=== PATIENT | female | born 1995 | race Caucasian/White ===

== ENCOUNTER 2022-11-05 08:37 | Outpatient (CLI) | payer BC, SELFPAY ==
[2022-11-05 13:31] LABS: Amphetamine Screen Urine Negative (Negative); Barbiturate Screen Urine Negative (Negative); Benzodiazepines Screen Urine Negative (Negative); Cocaine Screen Urine Negative (Negative); Methadone Screen Urine Negative (Negative); Methamphetamines Screen Urine Negative (Negative); Opiate Screen Urine Negative (Negative); Oxycodone Screen Urine Negative (Negative); Phencyclidine Screen Urine Negative (Negative); Tricyclic Antidepressant Urine Negative (Negative)
[2022-11-05 14:09] LABS: Cannabinoid Screen Urine POSITIVE (Negative)
== END 2022-11-05 08:38 | disposition home or self-care (01) ==
LOC: LKVREF 08:39
PROVIDERS: PCP Physician Assistant Medical; Visit Provider Physician Assistant Medical
DX: F90.9 Attention-deficit hyperactivity disorder, unspecified type (principal)
CPT/HCPCS: 80306

== ENCOUNTER 2023-12-04 13:11 | Emergency (ER) | payer MEDICAID, SELFPAY ==
[2023-12-04 13:18] VITALS: BP 119/80; PULSE 105; RESP 18; TEMP 36.6; O2SAT 99; BMI 23.0
--- NOTE | 2023-12-04 13:33 | ED.GENADULT ---
HPI - General Adult General Chief complaint: Vaginal Bleeding Stated complaint: Heavy vaginal bleeding week and a half Time Seen by Provider: 12/04/23 13:12 History of Present Illness HPI narrative: The patient is a 28 year white female with a history of dysfunctional uterine bleeding and fairly heavy periods, has been on Junel control, about 10 days ago she started spotting and then stop her Junel because every 3 months she is postop for 5 days. Then she is expected to have a normal cycle. At this point the patient continues to have bleeding 10 days later, she has felt a little bit fatigued walking across the room. 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 She has stop the Junel after restarting it for a couple of days after her 5 day absence given the heaviness of the bleeding. She sees are [facility] for primary care. She has not any chest pain, breathing problem, leg swelling or edema, bleeding or blood diatheses Related Data Home Medications Medication Instructions Recorded Confirmed insulin aspart U-100 100 unit/mL 1 sliding scale dose subcut 11/05/22 08/07/23 (3 mL) subcutaneous pen (Novolog USEASDIRECTD FlexPen U-100 Insulin aspart) montelukast 10 mg tablet 10 mg PO QDAY 11/05/22 08/07/23 norethindrone acetate 1 mg-ethinyl 1 tab PO QDAY 07/03/23 08/07/23 estradiol 20 mcg tablet () Previous Rx's Medication Instructions Recorded ondansetron HCl 4 mg tablet 4 mg PO Q6H PRN for 09/11/23 nausea/vomiting #20 tabs propranolol 20 mg tablet 20 mg PO BID PRN anxiety #60 tabs 10/07/23 trazodone 50 mg tablet 100 mg (2 x 50 mg) PO QDAY #180 11/05/23 tabs medroxyprogesterone 10 mg tablet 20 mg (2 x 10 mg) PO BID #20 tabs 12/04/23 (Provera) Allergies Allergy/AdvReac Type Severity Reaction Status Date / Time amoxicillin AdvReac Hives Verified 08/07/23 10:52 metoclopramide [From Reglan] AdvReac Anxiety Verified 08/07/23 10:52 prochlorperazine AdvReac Verified 08/07/23 10:52 [From Compazine] Review of Systems Status of ROS: Reports: 6 or more systems reviewed and unremarkable except as noted in History and below [facility] Medical History Hx of pneumococcal septicemia ?Z86.19 - Personal history of other infectious and parasitic diseases (ICD-10) Fracture of thoracic spine ?S22.009A - Unspecified fracture of unspecified thoracic vertebra, initial encounter for closed fracture (ICD-10) Social History Narrative: Single. She resides with her mother. 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 Nontobacco user. Denies alcohol use. Recreational marijuana use. 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 Smoking Status: Never smoker Little interest or pleasure in doing things: nearly every day Feeling down, depressed, or hopeless: nearly every day Exam Narrative: Exam Narrative: Objective: Patient is alert oriented, noncyanotic, does not appear pale Vital signs look within normal limits HEENT unremarkable pulse regular abdomen benign soft , extremities good perfusion No suprapubic pain to palpation, no palpable mass Const: Vital Signs, click to edit/add: Vital Signs - 24 hr 12/04/23 13:18 Temperature 97.9 F Pulse Rate [Pulse Oximeter] 105 H Respiratory Rate 18 Blood Pressure [Ri ght Upper Arm] 119/80 Pulse Oximetry 99 Oxygen Delivery Me thod Room Air Course Vital Signs Vital signs: Initial Vital Signs Temperature 97.9 F 12/04/23 13:18 Temperature Source Temporal Artery Scan 12/04/23 13:18 Pulse Rate 105 H 12/04/23 13:18 Pulse Rhythm Regular 12/04/23 13:18 Respiratory Rate 18 12/04/23 13:18 Blood Pressure 119/80 12/04/23 13:18 Blood Pressure Mean 93 12/04/23 13:18 Blood Pressure Position Sitting 12/04/23 13:18 Pulse Oximetry 99 12/04/23 13:18 Oxygen Delivery Method Room Air 12/04/23 13:18 Vital Signs Temperature 97.9 F 12/04/23 13:18 Pulse Rate 105 H 12/04/23 13:18 Respiratory Rate 18 12/04/23 13:18 Blood Pressure 119/80 12/04/23 13:18 Pulse Oximetry 99 12/04/23 13:18 Oxygen Delivery Method Room Air 12/04/23 13:18 Temperature 97.9 F 12/04/23 13:18 Pulse Rate 105 H 12/04/23 13:18 Respiratory Rate 18 12/04/23 13:18 Blood Pressure 119/80 12/04/23 13:18 Pulse Oximetry 99 12/04/23 13:18 Oxygen Delivery Method Room Air 12/04/23 13:18 Medications Administered Medications: Discontinued Medications Generic Name Dose Route Start Last Admin Trade Name Jacques PRN Reason Stop Dose Admin Sodium Chloride 1,000 mls @ 6,000 mls/hr 12/04/23 13:30 12/04/23 14:53 0.9 % Sodium Chloride 1000 Ml IV 12/04/23 13:39 Infused .Q10M IVON Infusion Medical Decision Making MDM Narrative Medical decision making narrative: [age] year white female with control use of estrogen progestin, with heavy vaginal bleeding for about 10 days being off the pill. The patient at this point I think would be tavares check a test give her some IV fluid, check her hemoglobin. Will discuss with OB, it usually at this point a 10 day course of progesterone would be reasonable or Provera. Disposition pending recommendations. Lab Data Labs: Lab Results 12/04/23 12/04/23 Range/Units 13:35 14:00 WBC 6.63 (4.50-11.00) K/uL RBC 3.70 L (4.00-5.20) m/uL Hgb 10.9 L (12.0-16.0) gm/dL Hct 33.0 (33.0-51.0) % MCV 89 (80-100) fL MCH 30 (26-34) pg MCHC 33 (32-36) gm/dL RDW Coeff of Kamryn 13.5 (11.5-15.5) % Plt Count 330 (140-440) K/uL Neut % (Auto) 59.1 (42.0-72.0) % Lymph % (Auto) 31.2 (20-44) % [place] % (Auto) 6.3 (0.0-11.0) % Eos % (Auto) 2.7 (0.0-7.0) % Baso % (Auto) 0.5 (0.0-3.0) % Neut # (Auto) 3.92 (1.7-7.0) K/uL Lymph # (Auto) 2.07 (0.90-2.90) K/uL [place] # (Auto) 0.40 (0.00-0.90) K/UL Eos # (Auto) 0.18 (0.00-0.50) K/uL Baso # (Auto) 0.03 (0.00-0.30) K/uL Abs Immat Gran (auto) 0.01 (0.00-0.30) K/uL Imm/Tot Granulo (auto) 0.2 % Sodium 134 L (135-149) mmol/L Potassium 3.8 (3.6-5.1) mmol/L Chloride 102 (96-114) mmol/L Carbon Dioxide 22 (20-32) mmol/L Anion Gap 10 (7-15) mEq/L BUN 14 (5-24) mg/dL Creatinine 0.6 (0.5-1.5) mg/dL Estimated Creat Clear 127.85 Estimated GFR 127 ml/min Glucose 188 H (60-115) mg/dL Calcium 8.8 (8.4-10.6) mg/dL HCG, Qual Negative (Negative) Discharge Plan Discharge Clinical Impression: DUB (dysfunctional uterine bleeding) Patient Disposition: Home, Self-Care Condition: Improved Instructions: Abnormal (Dysfunctional) Uterine Bleeding (ED) Additional Instructions: 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 Return to the ED if lightheadedness dizziness chest pain or other concerns. Return if persistent bleeding over the next few days or symptoms as described above. No written for off work for 3 days Activity Level: Light activity Discharge Diet: Diabetic Prescriptions: New medroxyprogesterone [Provera] 10 mg tablet 20 mg PO BID Qty: 20 2RF No Action insulin aspart U-100 [Novolog FlexPen U-100 Insulin] 100 unit/mL (3 mL) insulin pen 1 sliding scale dose subcut USEASDIRECTD montelukast 10 mg tablet 10 mg PO QDAY norethindrone ac-eth estradiol [10/05 (21)] 1-20 mg-mcg tablet 1 tab PO QDAY ondansetron HCl 4 mg tablet 4 mg PO Q6H PRN (Reason: for nausea/vomiting) Qty: 20 0RF propranolol 20 mg tablet 20 mg PO BID PRN (Reason: anxiety) Qty: 60 0RF Rx Instructions: 1 tablet twice daily as needed for anxiety trazodone 50 mg tablet 100 mg PO QDAY Qty: 180 2RF Rx Instructions: 2 tablets daily Follow Up/Referrals: Deborah Culver PA-C [Primary Care Provider] - Stand Alone Forms: [facility] Info Instructions
[2023-12-04 13:43] LABS: Basophils Absolute Auto 0.03 K/uL (0.00-0.30); Basophils Percent Auto 0.5 % (0.0-3.0); Eosinophils Absolute Auto 0.18 K/uL (0.00-0.50); Eosinophils Percent Auto 2.7 % (0.0-7.0); Hemoglobin* 10.9 gm/dL (12.0-16.0); Immature Granulocytes Abs Auto 0.01 K/uL (0.00-0.30); Immature Granulocytes Pct Auto 0.2 %; Lymphocytes Absolute Auto 2.07 K/uL (0.90-2.90); Lymphocytes Percent Auto 31.2 % (20-44); Mean Corpuscular HGB Conc 33 gm/dL (32-36); Mean Corpuscular Hemoglobin 30 pg (26-34); Mean Corpuscular Volume 89 fL (80-100); Monocytes Percent Auto 6.3 % (0.0-11.0); Neutrophils Absolute Auto 3.92 K/uL (1.7-7.0); Neutrophils Percent Auto 59.1 % (42.0-72.0); Platelet Count* 330 K/uL (140-440); RDW Coefficient of Variation % 13.5 % (11.5-15.5); White Blood Count* 6.63 K/uL (4.50-11.00)
[2023-12-04] MEDS: 0.9 % SODIUM CHLORIDE 1000 ml 1,000 ML 6000 ML IV (13:43)
[2023-12-04 13:54] LABS: Slide Review Reflex No
[2023-12-04 14:43] LABS: Chloride* 102 mmol/L (96-114)
[2023-12-04 14:44] LABS: Potassium* 3.8 mmol/L (3.6-5.1); Sodium* 134 mmol/L (135-149)
[2023-12-04 14:45] LABS: HCG Qualitative Serum* Negative (Negative)
[2023-12-04 14:46] LABS: Creatinine* 0.6 mg/dL (0.5-1.5); Est. Creatinine Clearance* 127.85; Estimated Glomerular Filt Rate 127 ml/min
[2023-12-04 14:47] LABS: Anion Gap 10 mEq/L (7-15); Blood Urea Nitrogen* 14 mg/dL (5-24); Calcium* 8.8 mg/dL (8.4-10.6); Carbon Dioxide* 22 mmol/L (20-32); Glucose* 188 mg/dL (60-115)
== END 2023-12-04 15:07 | disposition home or self-care (01) ==
LOC: ED 13:55
PROVIDERS: Emergency Provider Family Medicine; PCP Physician Assistant Medical
DX: N93.8 Other specified abnormal uterine and vaginal bleeding (principal)
CPT/HCPCS: 36415; 80048; 84703; 85025; 96360; 99284; J7030

== ENCOUNTER 2024-03-12 14:39 | Outpatient (CLI) | payer MEDICAID, SELFPAY | END 2024-03-12 14:40 | disposition home or self-care (01) | PROVIDERS: PCP Physician Assistant Medical; Visit Provider Physician Assistant Medical | DX: R10.9 Unspecified abdominal pain (principal) | CPT/HCPCS: 80076; 83690; 87086 ==

== ENCOUNTER 2024-09-30 09:43 | Outpatient (CLI) | payer MEDICAID, SELFPAY | END 2024-09-30 09:44 | disposition home or self-care (01) | PROVIDERS: PCP Physician Assistant Medical; Visit Provider Physician Assistant Medical | DX: Z91.09 Other allergy status, other than to drugs and biological substances (principal); R53.83 Other fatigue | CPT/HCPCS: 82180; 82306; 82607; 82728; 84443; 86231; 86258; 86364; 86376 ==